=== PATIENT | male | born 1970 | race Caucasian/White ===

== ENCOUNTER 2017-07-23 12:26 | Inpatient (IN) | payer OTHER ==
[2017-07-23 15:14] VITALS: BMI 33.6
--- NOTE | 2017-07-23 17:57 | HP ---
CIWA Score - CIWA Score Nausea/Vomitin-Mild Nausea/No Vomiting Muscle Tremors: 4-Moderate,w/Arms Extend Anxiety: 4-Mod. Anxious/Guarded Agitation: 4-Moderately Restless Paroxysmal Sweats: 1-Minimal Palms Moist Orientation: 0-Oriented Tacttile Disturbances: 0-None Auditory Disturbances: 0-None Visual Disturbances: 0-None Headache: 0-None Present CIWA-Ar Total Score: 14 Admission ROS [facility] - HPI Chief Complaint: WITHDRAWAL SX Allergies/Adverse Reactions: Allergies Allergy/AdvReac Type Severity Reaction Status Date / Time haloperidol [From Haldol] Allergy Severe Verified 07/23/17 16:33 History of Present Illness: 47 YEARS OLD MALE WITH LONG HISTORY OF ALCOHOL NICOTINE DEPENDENCE HAS GERD ASTHMA COPD AND BIPOLAR II AND CHRONIC BACK PAIN IS ADMITTED TO DETOX Exam Limitations: No Limitations - Ebola screening Have you traveled outside of the country in the last 21 days: No Have you had contact with anyone from an Ebola affected area: No Have you been sick,other than usual withdrawal symptoms: No Do you have a fever: No - Review of Systems Constitutional: Changes in sleep, Weight Stable EENT: reports: Cataracts (RIGHT EYE), Blurred Vision (RIGHT EYE), Dental Problems (LOWER TEETH MISSING) Respiratory: reports: SOB with Exertion Cardiac: reports: No Symptoms Reported GI: reports: Diarrhea, Nausea, Poor Fluid Intake, Indigestion, Abdominal cramping : reports: No Symptoms Reported Musculoskeletal: reports: Back Pain Integumentary: reports: No Symptoms Reported Neuro: reports: Tremors Endocrine: reports: No Symptoms Reported Hematology: reports: No Symptoms Reported Psychiatric: reports: Judgement Intact, Orientated x3, Anxious, Depressed Other Systems: Reviewed and Negative Patient History - Patient Medical History Hx Anemia: No Hx Asthma: Yes (Pt is on MDI.) Hx Chronic Obstructive Pulmonary Disease (COPD): Yes Hx Cancer: No Hx Cardiac Disorders: No Hx Congestive Heart Failure: No Hx Hypertension: No Hx Hypercholesterolemia: No Hx Pacemaker: No HX Cerebrovascular Accident: No Hx Seizures: Yes (pt had a seizure once in 2009.) Hx Dementia: No Hx Diabetes: No Hx Gastrointestinal Disorders: No Hx Liver Disease: No Hx Genitourinary Disorders: No Hx Sexually Transmitted Disorders: No Hx Renal Disease (ESRD): No Hx Thyroid Disease: No Hx Human Immunodeficiency Virus (HIV): Yes (2000) Hx Hepatitis C: No Hx Depression: No Hx Suicide Attempt: Yes (Pt tried jumping out a window in 1998.) Hx Bipolar Disorder: Yes Hx Schizophrenia: No - Patient Surgical History Past Surgical History: Yes Hx Neurologic Surgery: Yes (back sx from a fall in 1998) Hx Cataract Extraction: No Hx Cardiac Surgery: No Hx Lung Surgery: No Hx Breast Surgery: No Hx Breast Biopsy: No Hx Abdominal Surgery: No Hx Appendectomy: No Hx Cholecystectomy: Yes (2010) Hx Genitourinary Surgery: No Hx Orthopedic Surgery: No Other Surgical History: tonsillectomy. Sx L index finger. Anesthesia Reaction: No - PPD History Previous Implant?: Yes Documented Results: Negative w/o proof Implanted On Prior [facility] Admission?: No PPD to be Administered?: Yes - Smoking Cessation Smoking history: Former smoker Have you smoked in the past 12 months: Yes Aproximately how many cigarettes per day: 15 If you are a former smoker, when did you quit?: quit 3 months ago. Cigars Per Day: 0 Hx Chewing Tobacco Use: No Initiated information on smoking cessation: Yes 'Breaking Loose' booklet given: 07/23/17 - Substance & Tx. History Hx Alcohol Use: Yes Hx Substance Use: Yes Substance Use Type: Alcohol, Cocaine Hx Substance Use Treatment: Yes (2002) - Substances Abused Alcohol Route: Oral Frequency: Daily Amount used: 2 pints liquor/ 2 6pks beer Age of first use: 11 Date of Last Use: 07/22/17 Cocaine Route: Inhalation Frequency: 1-3 times last 30 days Amount used: $40 Age of first use: 14 Date of Last Use: 07/22/17 Family Disease History - Family Disease History Family Disease History: Heart Disease: Father (), Other: Father Admission Physical Exam S - Vital Signs Vital Signs: Vital Signs - 24 hr 07/23/17 15:11 Temperature 95.6 F L Pulse Rate 82 Respiratory 20 Rate Blood Pressure 137/72 - Physical General Appearance: Yes: Obese, Tremorous, Irritable, Sweating, Anxious HEENTM: Yes: Hearing grossly Normal, Normal ENT Inspection, Normocephalic, Normal Voice Respiratory: Yes: Chest Non-Tender, Lungs Clear, Normal Breath Sounds, No Respiratory Distress, No Accessory Muscle Use Neck: Yes: Supple, Trachea in good position Breast: Yes: Breasts Symetrical Cardiology: Yes: Regular Rhythm, Regular Rate, S1, S2 Abdominal: Yes: Normal Bowel Sounds, Non Tender, Flat Genitourinary: Yes: Within Normal Limits Back: Yes: Normal Inspection, Surgical Scar Musculoskeletal: Yes: full range of Motion, Gait Steady, Back pain Extremities: Yes: Normal Inspection, Normal Range of Motion, Non-Tender, Tremors , Other (LIMP TO THE LEFT NO CANE NEEDED) Neurological: Yes: Fully Oriented, Alert, Motor Strength 5/5, Normal Response, Depressed Affect Integumentary: Yes: Warm Lymphatic: Yes: Within Normal Limits - Diagnostic (1) Alcohol dependence with uncomplicated withdrawal Current Visit: Yes Status: Acute (2) HIV (human immunodeficiency virus infection) Current Visit: Yes Status: Chronic Comment: BROUGHT OWN MEDICATIONS (3) Nicotine dependence Current Visit: Yes Status: Acute Qualifiers: Nicotine product type: cigarettes Substance use status: in withdrawal Qualified Code(s): F17.213 - Nicotine dependence, cigarettes, with withdrawal (4) GERD (gastroesophageal reflux disease) Current Visit: Yes Status: Chronic Qualifiers: Esophagitis presence: without esophagitis Qualified Code(s): K21.9 - Gastro -esophageal reflux disease without esophagitis (5) Bipolar II disorder Current Visit: Yes Status: Suspected (6) Chronic back pain Current Visit: Yes Status: Chronic Qualifiers: Back pain laterality: bilateral Sciatica presence: without sciatica Cleared for Admission [facility] - Detox or Rehab [facility] Level of Care: Medically Managed Detox Regimen/Protocol: Librium [facility] Breath Alcohol Content Breath Alcohol Content: 0 Urine Drug Screen - Results Drug Screen Negative: No Urine Drug Screen Results: GABRIEL-Cocaine
[2017-07-23] MEDS ORDERED: MAG HYDROX/AL HYDROX/SIMETH 30 ML UNIT-DOSE CUP PO PRN (18:02)
[2017-07-23] MEDS ORDERED: MAGNESIUM HYDROX 2400MG/30ML ORAL SUSPENSION 30 ML CUP PO PRN (18:02)
[2017-07-23] MEDS ORDERED: MAGNESIUM CITRATE 300 ML BOTTLE PO PRN (18:02)
[2017-07-23] MEDS ORDERED: MENTHOL/PHENOL 1 EACH UD MM PRN (18:02)
[2017-07-23] MEDS ORDERED: IBUPROFEN 400 MG TABLET (FP) PO PRN (18:02)
[2017-07-23] MEDS ORDERED: NICOTINE POLACRILEX 4 MG GUM BC PRN (18:02)
[2017-07-23] MEDS ORDERED: ACETAMINOPHEN 325 MG TABLET (FP) PO PRN (18:02)
[2017-07-23] MEDS ORDERED: LOPERAMIDE HCL 2 MG CAPSULE PO PRN (18:02)
[2017-07-23] MEDS ORDERED: P-EPHED 60MG/TRIPROLIDI 2.5MG TABLET PO PRN (18:02)
[2017-07-23] MEDS ORDERED: guaiFENesin/D-METHORPHAN HB 10 ML UNIT-DOSE CUPS PO PRN (18:02)
[2017-07-23] MEDS ORDERED: METHOCARBAMOL 500 MG TABLET PO PRN (18:09)
[2017-07-23] MEDS: chlordiazePOXIDE HCL 25 MG CAPSULE PO PRN (19:55)
[2017-07-23] MEDS: THIAMINE HCL 100 MG TABLET (FP) PO SCH (22:28)
[2017-07-23] MEDS: chlordiazePOXIDE HCL 25 MG CAPSULE PO SCH (22:28)
[2017-07-23] MEDS: LIDOCAINE PATCH REMOVAL MC SCH (22:28)
[2017-07-23] MEDS: RANITIDINE HCL 150 MG TABLET (FP) PO SCH (22:28)
[2017-07-23] MEDS: BUDESONIDE/FORMETEROL FUMARATE 80/4.5 mcg INHALER IH SCH (22:29)
[2017-07-23 23:24] LABS: URINE APPEARANCE CLEAR; URINE BILIRUBIN NEGATIVE (NEGATIVE); URINE BLOOD NEGATIVE (NEGATIVE); URINE COLOR YELLOW; URINE GLUCOSE (UA) NEGATIVE (NEGATIVE); URINE KETONE NEGATIVE (NEGATIVE); URINE LEUK ESTERASE NEGATIVE (NEGATIVE); URINE NITRITE NEGATIVE (NEGATIVE); URINE PROTEIN NEGATIVE (NEGATIVE); URINE UROBILINOGEN NEGATIVE mg/dL (0.2-1.0)
[2017-07-24] MEDS: chlordiazePOXIDE HCL 25 MG CAPSULE PO SCH ×4 (05:33→22:15)
[2017-07-24] MEDS: ALBUTEROL SO4 18 GM HFA INHALER IH PRN ×3 (05:48→22:18)
--- NOTE | 2017-07-24 09:47 | EKG ---
Test Reason : Blood Pressure : / mmHG Vent. Rate : 078 BPM Atrial Rate : 326 BPM P-R Int : 144 ms QRS Dur : 106 ms QT Int : 398 ms P-R-T Axes : 063 039 059 degrees QTc Int : 453 ms UNDETERMINED RHYTHM due to artifact OTHERWISE NORMAL ECG WHEN COMPARED WITH ECG OF 03-JUL-2007 12:18, CURRENT UNDETERMINED RHYTHM PRECLUDES RHYTHM COMPARISON, NEEDS REVIEW Confirmed by MD Yesy, Rogerio ([id number]) on 07/24/2017 9:47:23 AM Referred By: Confirmed By:Rogerio Hayward MD
[2017-07-24 09:48] LABS: HEMOGLOBIN 12.3 GM/dL (11.7-16.9); MCH 30.1 pg (25.7-33.7); MCHC 32.4 g/dl (32.0-35.9); MEAN CELL VOLUME 92.7 fl (80-96); MEAN PLT VOLUME 8.1 fl (7.5-11.1); PLATELET COUNT 269 K/MM3 (134-434); RDW 14.4 % (11.9-15.9); WHITE BLOOD COUNT 6.6 K/mm3 (4.0-10.0)
[2017-07-24 09:50] LABS: CHLORIDE 107 mmol/L (98-107); POTASSIUM 4.3 mmol/L (3.5-5.1); SODIUM 140 mmol/L (136-145)
[2017-07-24 10:03] LABS: ALBUMIN 3.3 g/dl (3.4-5.0); ALK PHOS 110 U/L (45-117); ANION GAP 7 (8-16); BILIRUBIN,TOTAL 0.3 mg/dL (0.2-1.0); BLOOD UREA NITROGEN 15 mg/dL (7-18); CALCIUM 8.5 mg/dL (8.5-10.1); CO2 26 mmol/L (21-32); CREATININE 0.9 mg/dL (0.7-1.3); GLUCOSE,RANDOM 110 mg/dL (74-106); SGOT/AST 32 U/L (15-37); SGPT/ALT 78 U/L (12-78); TOT PROT 6.2 g/dl (6.4-8.2)
[2017-07-24] MEDS: LIDOCAINE 5% TOPICAL PATCH TP SCH (10:25)
[2017-07-24] MEDS: PRENATAL VITAMINS W/ FOLIC ACID TABLET (FP) PO SCH (10:26)
[2017-07-24] MEDS: RANITIDINE HCL 150 MG TABLET (FP) PO SCH ×2 (10:26→22:15)
[2017-07-24] MEDS: NICOTINE 21 MG/24 HOURS TOPICAL PATCH TD SCH (10:26)
[2017-07-24] MEDS: TIOTROPIUM BROMIDE 18 MCG/INH (DEVICE W/ 5 CAPSULES) IH SCH (10:28)
[2017-07-24] MEDS: PATIENT'S OWN MEDICATION (NON-FORMULARY) (Emtricitabine/Tenofovir [Truvada -] 1 TAB) PO SCH (10:29)
[2017-07-24] MEDS: PATIENT'S OWN MEDICATION (NON-FORMULARY) (Darunavir/Cobicistat [Prezcobix 800 Mg-150 Mg Ta PO SCH (10:29)
[2017-07-24] MEDS: BUDESONIDE/FORMETEROL FUMARATE 80/4.5 mcg INHALER IH SCH ×2 (10:31→22:14)
--- NOTE | 2017-07-24 12:16 | PN ---
[facility] CIWA - CIWA Score Nausea/Vomitin-No Nausea/No Vomiting Muscle Tremors: 3 Anxiety: 4-Mod. Anxious/Guarded Agitation: 3 Paroxysmal Sweats: 3 Orientation: 0-Oriented Tacttile Disturbances: 3-Moderate Itch/Numb/Burn Auditory Disturbances: 1-Very Mild Visual Disturbances: 1-Very Mild Sensitivity Headache: 0-None Present CIWA-Ar Total Score: 18 BHS Progress Note (SOAP) Subjective: Diarrhea, Fatigue, Stomach Cramping, Sweating, Tremors. Objective: PT. A & O X 3, OBSERVED AMBULATING ON UNIT. NO ACUTE DISTRESS. 07/24/17 12:13 Vital Signs Temperature 97.1 F L 07/24/17 09:06 Pulse Rate 80 07/24/17 09:06 Respiratory Rate 18 07/24/17 09:06 Blood Pressure 129/86 07/24/17 09:06 O2 Sat by Pulse Oximetry (%) Laboratory Tests 07/23/17 07/24/17 07/24/17 21:23 07:30 07:30 WBC 6.6 RBC 4.10 Hgb 12.3 Hct 38.0 MCV 92.7 MCH 30.1 MCHC 32.4 RDW 14.4 Plt Count 269 MPV 8.1 Sodium 140 Potassium 4.3 Chloride 107 Carbon Dioxide 26 Anion Gap 7 L BUN 15 Creatinine 0.9 Creat Clearance w eGFR > 60 Random Glucose 110 H Calcium 8.5 Total Bilirubin 0.3 AST 32 ALT 78 Alkaline Phosphatase 110 Total Protein 6.2 L Albumin 3.3 L Urine Color Yellow Urine Appearance Clear Urine pH 6.0 Ur Specific [place] 1.017 Urine Protein Negative Urine Glucose (UA) Negative Urine Ketones Negative Urine Blood Negative Urine Nitrite Negative Urine Bilirubin Negative Urine Urobilinogen Negative Ur Leukocyte Esterase Negative RPR Titer 07/24/17 07:30 WBC RBC Hgb Hct MCV MCH MCHC RDW Plt Count MPV Sodium Potassium Chloride Carbon Dioxide Anion Gap BUN Creatinine Creat Clearance w eGFR Random Glucose Calcium Total Bilirubin AST ALT Alkaline Phosphatase Total Protein Albumin Urine Color Urine Appearance Urine pH Ur Specific [place] Urine Protein Urine Glucose (UA) Urine Ketones Urine Blood Urine Nitrite Urine Bilirubin Urine Urobilinogen Ur Leukocyte Esterase RPR Titer Nonreactive LABS NOTED. Assessment: 07/24/17 12:14 WITHDRAWAL SYMPTOMS. Plan: CONTINUE DETOX. INCREASE DAILY PO FLUID INTAKE.
--- NOTE | 2017-07-24 13:26 | CONSULT ---
[facility] - Data Date of interview: 07/24/17 [facility] Identifying data: First admission to [facility] for this 47 y/o male seeking detox treatment on for alcohol and cocaine dependence.Patient is single (common-law),father of two,domiciled and currently employed. Substance Abuse History: Patient confirmed recent relapse into alcohol and cocaine abuse after months of sobriety.See current [facility] reort for details : Smoking history: Former smoker. Have you smoked in the past 12 months: Yes. Aproximately how many cigarettes per day: 15. If you are a former smoker, when did you quit?: quit 3 months ago. Cigars Per Day: 0. Hx Chewing Tobacco Use: No. Initiated information on smoking cessation: Yes. 'Breaking Loose' booklet given: 07/23/17. - Substance & Tx. History. Hx Alcohol Use: Yes. Hx Substance Use: Yes. Substance Use Type: Alcohol, Cocaine. Hx Substance Use Treatment: Yes (2002). - Substances Abused. Alcohol. Route: Oral. Frequency: Daily. Amount used: 2 pints liquor/ 2 6pks beer. Age of first use: 11. Date of Last Use: 07/22/17. Cocaine. Route: Inhalation. Frequency: 1- 3 times last 30 days. Amount used: $40. Age of first use: 14. Date of Last Use: 07/22/17 Medical History: Bronchial asthma,antecedent of withdrawal-related seizures, chronic back pain,HIV infection since 2000 (on ART medications),hearing impediment (both ears),cataract (right eye),past history of back surgery and tonsillectomy. Psychiatric History: Patient reports a history of multiple psychiatric hospitalizations.Diagnosed with Bipolar Disorder and MDD.Currently managed as an outpatient at [facility] (trilafon 16 mg/day + trazodone 50 mg) according to self-report.Mr Foster informs of a 10 year span without psychiatric re-admissions until his committment at [facility] in 2016.Patient denies history of suicide attempts in this interview ([facility] report indicates past history of a suicide via jumping out of a window in 1998). Physical/Sexual Abuse/Trauma History: Patient denies history of abuse. Additional Comment: Urine Drug Screen Results: GABRIEL-Cocaine.Noted. Mental Status Exam - Mental Status Exam Alert and Oriented to: Time, Place, Person Cognitive Function: Good Patient Appearance: Well Groomed Mood: Nervous, Anxious, Hopeful Affect: Mood Congruent Patient Behavior: Fatigued, Appropriate, Cooperative Speech Pattern: Clear, Appropriate Voice Loudness: Normal Thought Process: Goal Oriented Thought Disorder: Not Present Hallucinations: Denies Suicidal Ideation: Denies Homicidal Ideation: Denies Insight/Judgement: Fair Sleep: Poorly, Difficulty falling asleep Appetite: Good Muscle strength/Tone: Normal Gait/Station: Normal Psychiatric Findings - Problem List ([place] 1, 2,3) (1) Alcohol dependence with uncomplicated withdrawal Current Visit: Yes Status: Acute (2) Cocaine dependence Current Visit: Yes Status: Acute (3) Nicotine dependence Current Visit: Yes Status: Acute Qualifiers: Nicotine product type: cigarettes Substance use status: in withdrawal Qualified Code(s): F17.213 - Nicotine dependence, cigarettes, with withdrawal (4) Substance induced mood disorder Current Visit: Yes Status: Acute (5) Bipolar II disorder Current Visit: Yes Status: Chronic (6) Insomnia Current Visit: Yes Status: Acute - Initial Treatment Plan Initial Treatment Plan: Psychoeducation and support.Sleep hygiene discussed.Detoxification in progress.Medications : trazodone 50 mg po hs + perphenazine 16 mg po daily.Side effects/benefits of both drugs are discussed with the patient.Made aware,in particular,of risk of priapism and abnormal involuntary movements.Mr Shirley endorses a history of good tolerability/ efficacy and he requests the inclusion of these medications in his current regimen.Consent (verbal) given.Observation.
[2017-07-24] MEDS: PERPHENAZINE 4 MG TABLET PO SCH (14:43)
[2017-07-24] MEDS ORDERED: PERPHENAZINE 8 MG TABLET PO SCH (22:00)
[2017-07-24] MEDS: THIAMINE HCL 100 MG TABLET (FP) PO SCH (22:15)
[2017-07-24] MEDS: LIDOCAINE PATCH REMOVAL MC SCH (22:16)
[2017-07-24] MEDS: NAPROXEN 500 MG TABLET (FP) PO PRN (22:16)
[2017-07-24] MEDS: traZODone HCL 50 MG TABLET (FP) PO SCH (22:28)
[2017-07-25] MEDS: chlordiazePOXIDE HCL 25 MG CAPSULE PO SCH ×4 (05:52→18:13)
[2017-07-25] MEDS ORDERED: ALBUTEROL SO4 2.5/IPRATROPIUM 0.5 INH SOL 3 ML VIAL.NEB. NEB ONE (08:15)
--- NOTE | 2017-07-25 08:54 | PN ---
[facility] Progress Note Note: PT C/O SOB. LUNGS: BILATERAL WHEEZING. PULSE OXIMETRY: 97% ROOM AIR. PLAN:DUONEB NEBULIZER STAT. VENTOLIN NEBULIZER DIRECTED
[2017-07-25] MEDS: chlordiazePOXIDE HCL 25 MG CAPSULE PO PRN ×2 (09:02→19:09)
[2017-07-25] MEDS: PATIENT'S OWN MEDICATION (NON-FORMULARY) (Darunavir/Cobicistat [Prezcobix 800 Mg-150 Mg Ta PO SCH (09:03)
[2017-07-25] MEDS: PATIENT'S OWN MEDICATION (NON-FORMULARY) (Emtricitabine/Tenofovir [Truvada -] 1 TAB) PO SCH (09:04)
[2017-07-25] MEDS: RANITIDINE HCL 150 MG TABLET (FP) PO SCH ×2 (09:04→22:21)
[2017-07-25] MEDS: PRENATAL VITAMINS W/ FOLIC ACID TABLET (FP) PO SCH (09:04)
[2017-07-25] MEDS: TIOTROPIUM BROMIDE 18 MCG/INH (DEVICE W/ 5 CAPSULES) IH SCH (09:04)
[2017-07-25] MEDS: NICOTINE 21 MG/24 HOURS TOPICAL PATCH TD SCH (09:05)
[2017-07-25] MEDS: LIDOCAINE 5% TOPICAL PATCH TP SCH (09:05)
[2017-07-25] MEDS: BUDESONIDE/FORMETEROL FUMARATE 80/4.5 mcg INHALER IH SCH ×2 (09:10→22:20)
[2017-07-25] MEDS: PERPHENAZINE 4 MG TABLET PO SCH (09:11)
[2017-07-25] MEDS ORDERED: ALBUTEROL SO4 2.5/IPRATROPIUM 0.5 INH SOL 3 ML VIAL.NEB. NEB SCH (10:00)
--- NOTE | 2017-07-25 11:21 | PN ---
[facility] CIWA - CIWA Score Nausea/Vomitin-No Nausea/No Vomiting Muscle Tremors: 3 Anxiety: 5 Agitation: 4-Moderately Restless Paroxysmal Sweats: 3 Orientation: 0-Oriented Tacttile Disturbances: 1-Very Mild Itch/Numbness Auditory Disturbances: 0-None Visual Disturbances: 2-Mild Sensitivity Headache: 0-None Present CIWA-Ar Total Score: 18 [facility] Progress Note (SOAP) Subjective: Anxious, Sweating, Body Aches. Objective: PT. A & O X 3, OBSERVED AMBULATING ON UNIT. NO ACUTE DISTRESS. LUNG SOUNDS AUSCULATED CLEAR AND EQUAL BILATERALLY (PT. HAD PREVIOUS DUONEB TREATMENT) 07/25/17 11:18 Vital Signs Temperature 97.8 F 07/25/17 08:48 Pulse Rate 91 H 07/25/17 08:48 Respiratory Rate 20 07/25/17 08:48 Blood Pressure 141/83 07/25/17 08:48 O2 Sat by Pulse Oximetry (%) Laboratory Tests 07/23/17 07/24/17 07/24/17 21:23 07:30 07:30 WBC 6.6 RBC 4.10 Hgb 12.3 Hct 38.0 MCV 92.7 MCH 30.1 MCHC 32.4 RDW 14.4 Plt Count 269 MPV 8.1 Sodium 140 Potassium 4.3 Chloride 107 Carbon Dioxide 26 Anion Gap 7 L BUN 15 Creatinine 0.9 Creat Clearance w eGFR > 60 Random Glucose 110 H Calcium 8.5 Total Bilirubin 0.3 AST 32 ALT 78 Alkaline Phosphatase 110 Total Protein 6.2 L Albumin 3.3 L Urine Color Yellow Urine Appearance Clear Urine pH 6.0 Ur Specific [place] 1.017 Urine Protein Negative Urine Glucose (UA) Negative Urine Ketones Negative Urine Blood Negative Urine Nitrite Negative Urine Bilirubin Negative Urine Urobilinogen Negative Ur Leukocyte Esterase Negative RPR Titer 07/24/17 07:30 WBC RBC Hgb Hct MCV MCH MCHC RDW Plt Count MPV Sodium Potassium Chloride Carbon Dioxide Anion Gap BUN Creatinine Creat Clearance w eGFR Random Glucose Calcium Total Bilirubin AST ALT Alkaline Phosphatase Total Protein Albumin Urine Color Urine Appearance Urine pH Ur Specific [place] Urine Protein Urine Glucose (UA) Urine Ketones Urine Blood Urine Nitrite Urine Bilirubin Urine Urobilinogen Ur Leukocyte Esterase RPR Titer Nonreactive LABS NOTED. Assessment: 07/25/17 11:19 WITHDRAWAL SYMPTOMS. Plan: CONTINUE DETOX. PRN ROBAXIN FOR BODY ACHES /MUSCLES SPASMS. INCREASE DAILY PO FLUID INTAKE. CONTINUE NEBULIZER TREATMENTS FOR SOB.
[2017-07-25] MEDS: ALBUTEROL SO4 0.083% IH SOL 2.5 MG/3 ML VIAL.NEB. NEB SCH ×3 (12:36→23:01)
[2017-07-25] MEDS ORDERED: predniSONE 20 MG TABLET (UD) PO ONE (14:50)
--- NOTE | 2017-07-25 15:03 | PN ---
S Progress Note Note: Patient reports history of taking Prednisone (Long-term) for Asthma. Patient also has history of Early stage Lung Mesothelioma. Patient uncertain about dose. Unable to contact patient's Pharmacy ([facility] [place] ) via telephone today for further information. Stat Dose X 1 of Prednisone, 40 mg PO, to be followed by 20 mg PO Daily after ordered. Luz Elena Cadena NP
[2017-07-25] MEDS: NAPROXEN 500 MG TABLET (FP) PO PRN (19:09)
[2017-07-25] MEDS: chlordiazePOXIDE 5 MG CAPSULE PO SCH (22:18)
[2017-07-25] MEDS: traZODone HCL 50 MG TABLET (FP) PO SCH (22:18)
[2017-07-25] MEDS: LIDOCAINE PATCH REMOVAL MC SCH (22:20)
[2017-07-25] MEDS: THIAMINE HCL 100 MG TABLET (FP) PO SCH (22:21)
[2017-07-26] MEDS: ALBUTEROL SO4 0.083% IH SOL 2.5 MG/3 ML VIAL.NEB. NEB SCH ×3 (06:47→17:25)
[2017-07-26] MEDS: chlordiazePOXIDE 5 MG CAPSULE PO SCH ×3 (06:49→17:09)
[2017-07-26] MEDS ORDERED: predniSONE 20 MG TABLET (UD) PO SCH (10:00)
[2017-07-26] MEDS: PATIENT'S OWN MEDICATION (NON-FORMULARY) (Darunavir/Cobicistat [Prezcobix 800 Mg-150 Mg Ta PO SCH (10:07)
[2017-07-26] MEDS: PATIENT'S OWN MEDICATION (NON-FORMULARY) (Emtricitabine/Tenofovir [Truvada -] 1 TAB) PO SCH (10:07)
[2017-07-26] MEDS: BUDESONIDE/FORMETEROL FUMARATE 80/4.5 mcg INHALER IH SCH (10:07)
[2017-07-26] MEDS: RANITIDINE HCL 150 MG TABLET (FP) PO SCH (10:08)
[2017-07-26] MEDS: PERPHENAZINE 4 MG TABLET PO SCH (10:08)
[2017-07-26] MEDS: PRENATAL VITAMINS W/ FOLIC ACID TABLET (FP) PO SCH (10:08)
[2017-07-26] MEDS: TIOTROPIUM BROMIDE 18 MCG/INH (DEVICE W/ 5 CAPSULES) IH SCH (10:09)
[2017-07-26] MEDS: ALBUTEROL SO4 18 GM HFA INHALER IH PRN (10:09)
[2017-07-26] MEDS: NICOTINE 21 MG/24 HOURS TOPICAL PATCH TD SCH (10:13)
[2017-07-26] MEDS: LIDOCAINE 5% TOPICAL PATCH TP SCH (10:13)
--- NOTE | 2017-07-26 10:50 | PN ---
[facility] Progress Note (SOAP) Subjective: ANXIETY,SWEATS,DENIES SOB AT THIS TIME. EATING BREAKFAST IN DAYROOM WITH NO DISTRESS. Objective: 07/26/17 10:50 Vital Signs Temperature 96.9 F L 07/26/17 09:18 Pulse Rate 90 07/26/17 09:18 Respiratory Rate 18 07/26/17 09:18 Blood Pressure 140/85 07/26/17 09:18 O2 Sat by Pulse Oximetry (%) Laboratory Last Values WBC 6.6 K/mm3 (4.0-10.0) 07/24/17 07:30 RBC 4.10 M/mm3 (4.00-5.60) 07/24/17 07:30 Hgb 12.3 GM/dL (11.7-16.9) 07/24/17 07:30 Hct 38.0 % (35.4-49) 07/24/17 07:30 MCV 92.7 fl (80-96) 07/24/17 07:30 MCH 30.1 pg (25.7-33.7) 07/24/17 07:30 MCHC 32.4 g/dl (32.0-35.9) 07/24/17 07:30 RDW 14.4 % (11.9-15.9) 07/24/17 07:30 Plt Count 269 K/MM3 (134-434) 07/24/17 07:30 MPV 8.1 fl (7.5-11.1) 07/24/17 07:30 Sodium 140 mmol/L (136-145) 07/24/17 07:30 Potassium 4.3 mmol/L (3.5-5.1) 07/24/17 07:30 Chloride 107 mmol/L (98-107) 07/24/17 07:30 Carbon Dioxide 26 mmol/L (21-32) 07/24/17 07:30 Anion Gap 7 (8-16) L 07/24/17 07:30 BUN 15 mg/dL (7-18) 07/24/17 07:30 Creatinine 0.9 mg/dL (0.7-1.3) 07/24/17 07:30 Creat Clearance w eGFR > 60 (>60) 07/24/17 07:30 Random Glucose 110 mg/dL (74-106) H 07/24/17 07:30 Calcium 8.5 mg/dL (8.5-10.1) 07/24/17 07:30 Total Bilirubin 0.3 mg/dL (0.2-1.0) 07/24/17 07:30 AST 32 U/L (15-37) 07/24/17 07:30 ALT 78 U/L (12-78) 07/24/17 07:30 Alkaline Phosphatase 110 U/L (45-117) 07/24/17 07:30 Total Protein 6.2 g/dl (6.4-8.2) L 07/24/17 07:30 Albumin 3.3 g/dl (3.4-5.0) L 07/24/17 07:30 Urine Color Yellow 07/23/17 21:23 Urine Appearance Clear 07/23/17 21:23 Urine pH 6.0 (5.0-8.0) 07/23/17 21:23 Ur Specific [place] 1.017 (1.001-1.035) 07/23/17 21:23 Urine Protein Negative (NEGATIVE) 07/23/17 21:23 Urine Glucose (UA) Negative (NEGATIVE) 07/23/17 21:23 Urine Ketones Negative (NEGATIVE) 07/23/17 21:23 Urine Blood Negative (NEGATIVE) 07/23/17 21:23 Urine Nitrite Negative (NEGATIVE) 07/23/17 21:23 Urine Bilirubin Negative (NEGATIVE) 07/23/17 21:23 Urine Urobilinogen Negative mg/dL (0.2-1.0) 07/23/17 21:23 Ur Leukocyte Esterase Negative (NEGATIVE) 07/23/17 21:23 RPR Titer Nonreactive (NONREACTIVE) 07/24/17 07:30 Assessment: 07/26/17 10:50 WITHDRAWAL SX Plan: CONTINUE DETOX
[2017-07-26] MEDS: chlordiazePOXIDE HCL 25 MG CAPSULE PO PRN (13:53)
[2017-07-26 17:23] VITALS: BP 148/86; PULSE 105; TEMP 98.9
[2017-07-26] MEDS ORDERED: hydrOXYzine PAMOATE 50 MG CAPSULE (FP) PO PRN (17:33)
--- NOTE | 2017-07-26 18:08 | DS ---
[facility] Detox Discharge Summary Admission Date: 07/23/17 Discharge Date: 07/26/17 - History Present History: Alcohol Dependence Pertinent Past History: Laboratory Last Values WBC 6.6 K/mm3 (4.0-10.0) 07/24/17 07:30 RBC 4.10 M/mm3 (4.00-5.60) 07/24/17 07:30 Hgb 12.3 GM/dL (11.7-16.9) 07/24/17 07:30 Hct 38.0 % (35.4-49) 07/24/17 07:30 MCV 92.7 fl (80-96) 07/24/17 07:30 MCH 30.1 pg (25.7-33.7) 07/24/17 07:30 MCHC 32.4 g/dl (32.0-35.9) 07/24/17 07:30 RDW 14.4 % (11.9-15.9) 07/24/17 07:30 Plt Count 269 K/MM3 (134-434) 07/24/17 07:30 MPV 8.1 fl (7.5-11.1) 07/24/17 07:30 Sodium 140 mmol/L (136-145) 07/24/17 07:30 Potassium 4.3 mmol/L (3.5-5.1) 07/24/17 07:30 Chloride 107 mmol/L (98-107) 07/24/17 07:30 Carbon Dioxide 26 mmol/L (21-32) 07/24/17 07:30 Anion Gap 7 (8-16) L 07/24/17 07:30 BUN 15 mg/dL (7-18) 07/24/17 07:30 Creatinine 0.9 mg/dL (0.7-1.3) 07/24/17 07:30 Creat Clearance w eGFR > 60 (>60) 07/24/17 07:30 Random Glucose 110 mg/dL (74-106) H 07/24/17 07:30 Calcium 8.5 mg/dL (8.5-10.1) 07/24/17 07:30 Total Bilirubin 0.3 mg/dL (0.2-1.0) 07/24/17 07:30 AST 32 U/L (15-37) 07/24/17 07:30 ALT 78 U/L (12-78) 07/24/17 07:30 Alkaline Phosphatase 110 U/L (45-117) 07/24/17 07:30 Total Protein 6.2 g/dl (6.4-8.2) L 07/24/17 07:30 Albumin 3.3 g/dl (3.4-5.0) L 07/24/17 07:30 Urine Color Yellow 07/23/17 21:23 Urine Appearance Clear 07/23/17 21:23 Urine pH 6.0 (5.0-8.0) 07/23/17 21:23 Ur Specific [place] 1.017 (1.001-1.035) 07/23/17 21:23 Urine Protein Negative (NEGATIVE) 07/23/17 21:23 Urine Glucose (UA) Negative (NEGATIVE) 07/23/17 21:23 Urine Ketones Negative (NEGATIVE) 07/23/17 21:23 Urine Blood Negative (NEGATIVE) 07/23/17 21:23 Urine Nitrite Negative (NEGATIVE) 07/23/17 21:23 Urine Bilirubin Negative (NEGATIVE) 07/23/17 21:23 Urine Urobilinogen Negative mg/dL (0.2-1.0) 07/23/17 21:23 Ur Leukocyte Esterase Negative (NEGATIVE) 07/23/17 21:23 RPR Titer Nonreactive (NONREACTIVE) 07/24/17 07:30 LABS NOTED - Physical Exam Results Vital Signs: Vital Signs Temperature 98.9 F 07/26/17 17:22 Pulse Rate 105 H 07/26/17 17:22 Respiratory Rate 20 07/26/17 17:22 Blood Pressure 148/86 07/26/17 17:22 O2 Sat by Pulse Oximetry (%) - Treatment Hospital Course: Detox Protocol Followed, Detoxed Safely, Responded well, Discharged Condition Good - Medication Discharge Medications: Ambulatory Orders Albuterol Sulfate Inhaler - [Ventolin Hfa Inhaler -] 2 inh PO Q4H PRN 07/23/17 Darunavir/Cobicistat [Prezcobix 800 mg-150 mg Tablet] 1 each PO DAILY 07/23/17 Emtricitabine/Tenofovir [Truvada] 1 tab PO DAILY 07/23/17 Perphenazine [Trilafon] 16 mg PO HS 07/23/17 Salmeterol/Fluticasone [Advair 250Mcg/50Mcg] 1 inh PO BID 07/23/17 Tiotropium [place] [Spiriva] 1 inh IH DAILY 07/23/17 Trazodone HCl [Desyrel -] 50 mg PO HS 07/23/17 Perphenazine [Trilafon] 16 mg PO HS #30 tablet 07/24/17 Trazodone HCl [Desyrel -] 50 mg PO HS #30 tablet 07/24/17 - Diagnosis (1) Alcohol dependence with uncomplicated withdrawal Current Visit: Yes Status: Chronic (2) Asthma attack Current Visit: Yes Status: Chronic Qualifiers: Asthma severity: moderate Asthma persistence: unspecified Qualified Code( s): J45.901 - Unspecified asthma with (acute) exacerbation (3) Nicotine dependence Current Visit: Yes Status: Acute Qualifiers: Nicotine product type: cigarettes Substance use status: in withdrawal Qualified Code(s): F17.213 - Nicotine dependence, cigarettes, with withdrawal (4) GERD (gastroesophageal reflux disease) Current Visit: Yes Status: Chronic Qualifiers: Esophagitis presence: without esophagitis Qualified Code(s): K21.9 - Gastro -esophageal reflux disease without esophagitis (5) HIV (human immunodeficiency virus infection) Current Visit: Yes Status: Chronic - AMA Did Patient Leave Against Medical Advice: No
[2017-07-26] MEDS ORDERED: HYDROCORTISONE 2.5% TOPICAL CREAM 30 GM TUBE TP SCH (22:00)
[2017-07-26] MEDS ORDERED: chlordiazePOXIDE HCL 10 MG CAPSULE PO SCH (23:00)
== END 2017-07-26 18:24 | disposition home or self-care (01) | DRG 775 ==
LOC: YASAS 12:26 → Y3N 17:54
PROVIDERS: ADMIT Internal Medicine; ATTEND Internal Medicine
PROC: HZ2ZZZZ Detoxification Services for Substance Abuse Treatment (ICD-10-PCS; principal; 2017-07-26)
DX: F10.230 Alcohol dependence with withdrawal, uncomplicated (principal); F17.213 Nicotine dependence, cigarettes, with withdrawal; F19.24 Other psychoactive substance dependence with psychoactive substance-induced mood disorder; F31.81 Bipolar II disorder; G47.00 Insomnia, unspecified; K21.9 Gastro-esophageal reflux disease without esophagitis; Z21 Asymptomatic human immunodeficiency virus [HIV] infection status
CPT/HCPCS: 36415; 80053; 81003; 85027; 86593; 93005; 93010; 94640